=== PATIENT | male | born 1985 | race Caucasian/White ===

== ENCOUNTER 2018-01-15 16:25 | Emergency (ER) | payer OTHER ==
[~2018-01-15] VITALS: Ht 182.9 cm; Wt 97.7 kg
[2018-01-15] MEDS ORDERED: WELLBUTRIN (16:33)
[2018-01-15] MEDS ORDERED: CIPRO 100MG TA100 MG PO (16:33)
[2018-01-15] MEDS ORDERED: MORGIDOX 1X100100 MG PO (16:34)
[2018-01-15 17:03] VITALS: BP 132/82
== END 2018-01-15 17:00 | disposition home or self-care (01) ==
LOC: ED 16:25
DX: S61.411A Laceration without foreign body of right hand, initial encounter (principal); W26.0XXA Contact with knife, initial encounter; Y92.009 Unspecified place in unspecified non-institutional (private) residence as the place of occurrence of the external cause; L08.9 Local infection of the skin and subcutaneous tissue, unspecified; Z79.899 Other long term (current) drug therapy